=== PATIENT | female | born 1970 | race Caucasian/White ===

== ENCOUNTER 2023-02-05 10:28 | Emergency (ER) | payer BC ==
--- NOTE | 2023-02-05 11:05 | ED Integumentary General ---
"General Chief Complaint: Bite-Animal/Human/Insect Stated Complaint: DOG BITE | LOWER LIP LACERATIONS Nursing Triage Note: PT AMB TO RM 5 PT CO OF DOG BITE OF LOWER LIP, PT OWN DOGS WERE PLAY AND ACCIDENTLY BITTEN ON BOTTOM LOWER LIP FANG ROJAS NOTED. PT HAS 3 AREAS ON LOWER LIP TORN L SIDE SL WORSE Source: patient Exam Limitations: no limitations History of Present Illness Date Seen by Provider: Feb 05, 2023 Time Seen by Provider: 11:00 Initial Comments 52-year-old female presents to the ER with a dog bite to her lower lip. She was bitten by her own dog, the dog is up-to-date on his rabies vaccinations. Her last tetanus was over 5 years ago. Allergies and Home Medications Allergies Coded Allergies: No Known Drug Allergies (Unverified , 02/05/23) Patient Home Medication List Home Medication List Reviewed: Yes Amoxicillin/Potassium Clav (Amox Tr-K Clv 875-125 mg Tab) 875 Mg-125 Mg Tablet, 1 EACH PO BID Prescribed by: Claudia Loya on 02/05/23 1232 Review of Systems Review of Systems Constitutional: see HPI Skin: see HPI Past Bvntvbe-Xqscyk-Owtglx Hx Patient Social History Tobacco Use?: Yes Tobacco type used: Cigarettes Smoking Status: Current Everyday Smoker Substance use?: No Alcohol Use?: Yes Alcohol Frequency: Rarely Immunizations Up To Date First/Initial COVID19 Vaccinat: YES Second COVID19 Vaccination Ru: YES Past Medical History Surgery/Hospitalization HX: , GB, EXP LAP, ENDOMETRIOSIS, ADHD Physical Exam Vital Signs Vital Signs - First Documented 02/05/23 10:40 Temp 35.1 Pulse 67 Resp 18 B/P (MAP) 135/75 (95) Pulse Ox 99 Capillary Refill : Less Than 3 Seconds General Appearance: WD/WN, no apparent distress Neck: supple, normal inspection Cardiovascular: regular rate, rhythm Respiratory: lungs clear, normal breath sounds, no respiratory distress, no accessory muscle use Extremities: normal range of motion, normal inspection Neurologic/Psychiatric: alert, normal mood/affect Skin: normal color, warm/dry Skin Problem Location: face (Lower lip) Skin Problem Character: other (3 lacerations) Procedures/Interventions Wound Location: Face Other Wound Location 3 lacerations to lower lip Wound's Depth, Shape: irregular Wound Explored: clean Irrigated w/ Saline (ccs): 450 Anesthesia: 1% Lidocaine Volume Anesthetic (ccs): 5 Suture: Chromic Suture Size: 5-0 Number of Sutures: 8 Progress 3 lacerations to lower lip, largest 1 crossed the vermilion border. Mental block performed to anesthetize lower jaw, did not completely anesthetize the lip, small amount of lidocaine injected into the lip. Lacerations thoroughly cleansed with normal saline. Lacerations repaired with eight 5-0 Chromic Gut sutures. Patient became nauseous during procedure. Zofran IM administered. Progress/Results/Core Measures Results/Orders My Orders Orders - CLAUDIA WU APRN Dipht/Pertuss(Acell)/Tet Adult (Dipht/Pe (02/05/23 11:15) Ondansetron Injection (Ondansetron Inj (02/05/23 12:00) Ondansetron Injection (Ondansetron Inj (02/05/23 11:54) Medications Given in ED Current Medications Medications Dose Ordered Sig/Ric Route Start Time Stop Time Status Last Admin Dose Admin Diphtheria/ Tetanus/Acell Pertussis 0.5 ml ONCE ONCE IM 02/05/23 11:15 02/05/23 11:16 DC 02/05/23 11:59 0.5 ML Ondansetron HCl 4 mg ONCE ONCE IM 02/05/23 12:00 02/05/23 12:01 DC 02/05/23 11:58 4 MG Vital Signs/I&O 02/05/23 02/05/23 10:40 12:41 Temp 35.1 35.1 Pulse 67 67 Resp 18 18 B/P (MAP) 135/75 (95) 135/75 Pulse Ox 99 99 Blood Pressure Mean: 95 Progress Progress Note : Progress Note Patient seen and evaluated, resting comfortably in bed, no acute distress. Laceration was repaired, see procedure note. Patient has some difficulty with procedure due to nausea, IM Zofran was administered. Tetanus was updated. Will prescribe Augmentin for dog bite. Patient is stable for discharge. Discharge instructions and return precautions provided. Departure Impression Primary Impression: Dog bite Disposition: HOME, SELF-CARE Condition: Stable Departure-Patient Inst. Decision time for Depature: 12:30 Referrals: NO,LOCAL PHYSICIAN (PCP/Family) Primary Care Physician Patient Instructions: Animal Bites (DC) Add. Discharge Instructions: Complete full course of antibiotic as prescribed. Your sutures will absorb on their own in approximately 2 weeks. Follow-up with your primary care provider if your wound is not healing or you develop swelling, redness, discolored odorous drainage, or fever. Return for any new, concerning, or worsening symptoms. All discharge instructions reviewed with patient and/or family. Voiced understanding. Scripts Amoxicillin/Potassium Clav (Amox Tr-K Clv 875-125 mg Tab) 875 Mg-125 Mg Tablet 1 EACH PO BID for 10 Days, #20 TAB 0 Refills Prov: CLAUDIA WU APRN 02/05/23 CLAUDIA WU APRN Feb 05, 2023 11:05"
[2023-02-05] MEDS ORDERED: Tetanus/Diphtheria/Pertussis (Acell) ADULT Vaccine 0.5 ML IM ONE (11:15)
[2023-02-05] MEDS ORDERED: ONDANSETRON INJECTION 4 MG/2 ML (SDV) ONE (11:54)
[2023-02-05] MEDS ORDERED: ONDANSETRON INJECTION 4 MG/2 ML (SDV) IM ONE (12:00)
[2023-02-05] MEDS ORDERED: AMOX1TAB12 PO (12:32)
[2023-02-05 12:41] VITALS: BP 135/75
== END 2023-02-05 12:41 | disposition home or self-care (01) ==
LOC: ER 10:32
DX: S01.551A Open bite of lip, initial encounter (principal); F17.210 Nicotine dependence, cigarettes, uncomplicated; Z23 Encounter for immunization; W54.0XXA Bitten by dog, initial encounter
CPT/HCPCS: 12013; 40654; 90715